=== PATIENT | female | born 1975 ===

== ENCOUNTER → 2023-10-11 | Outpatient (REF) | payer BC | LOC: M LAB REF 17:19 | PROVIDERS: ATTEND Internal Medicine Endocrinology, Diabetes & Metabolism | DX: E04.2 Nontoxic multinodular goiter (principal) ==

== ENCOUNTER → 2024-12-16 | Outpatient (REF) | payer BC | LOC: M LAB REF 17:32 | PROVIDERS: ATTEND Internal Medicine Endocrinology, Diabetes & Metabolism | DX: E04.2 Nontoxic multinodular goiter (principal) ==